=== PATIENT | male | born 1945 | race Asian ===

== ENCOUNTER 2018-03-31 10:03 | Observation (INO) | payer BC ==
[2018-03-31 11:20] LABS: ADD MAN DIFF? NO
[2018-03-31 11:27] LABS: WHITE BLOOD COUNT 6.7 10^3/ul (4.8-10.8)
[2018-03-31 11:27] LABS: BASOPHILS % 0.6 % (0.0-2.0); EOSINOPHILS # 0.2 10^3/ul (0.0-0.5); EOSINOPHILS % 3.5 % (0.0-7.0); HEMATOCRIT 44.1 % (42.0-52.0); HEMOGLOBIN 15.1 g/dl (14.0-18.0); LYMPHOCYTES % 29.4 % (15.0-51.0); MEAN CORPUSCULAR HEMOGLOBIN 31.7 pg (29.0-33.0); MEAN CORPUSCULAR HGB CONC 34.2 g/dl (32.0-37.0); MEAN CORPUSCULAR VOLUME 92.6 fl (82.0-101.0); MONOCYTE # 0.5 10^3/ul (0.3-0.9); MONOCYTES % 6.8 % (0.0-11.0); NEUTROPHILS % 59.4 % (39.0-77.0); PLATELET COUNT 199 10^3/UL (140-415); RED BLOOD COUNT 4.76 10^6/ul (4.70-6.10); RED CELL DISTRIBUTION WIDTH 13.1 % (11.5-14.5)
[2018-03-31 11:48] LABS: INR 1.01; PROTIME 13.4 Sec (11.9-14.9)
[2018-03-31 11:59] LABS: ANION GAP 14 (8-16); CARBON DIOXIDE 28 mmol/L (21-31); CHLORIDE 105 mmol/L (97-110); GLUCOSE 101 mg/dl (70-220)
[2018-03-31 12:00] LABS: BLOOD UREA NITROGEN 16 mg/dl (7-20); CALCIUM 9.1 mg/dl (8.4-10.2); CREATININE 0.92 mg/dl (0.61-1.24); POTASSIUM 3.6 mmol/L (3.5-5.1); SODIUM 143 mmol/L (135-144)
[2018-03-31] MEDS ORDERED: FENTAnyl 50 MCG/ML VIAL (12:02)
[2018-03-31] MEDS ORDERED: MIDAZOLAM 1 MG/ML 2 ML INJ (12:02)
[2018-03-31] MEDS ORDERED: IODIXANOL LOCM 100 ML BTL ×2 (12:02→12:52)
[2018-03-31] MEDS ORDERED: NITROGLYCERIN (IC) 100 MCG/ML INJ (12:02)
[2018-03-31] MEDS ORDERED: HEPARIN 1000 UNITS/ML 10 ML INJ (12:02)
[2018-03-31] MEDS ORDERED: VERAPAMIL 5 MG INJ (12:02)
[2018-03-31] MEDS ORDERED: LIDOCAINE 1% (MDV) 10 ML INJ (12:03)
[2018-03-31] MEDS ORDERED: IOHEXOL 350MG/ML 50 ML BTL (12:52)
[2018-03-31] MEDS ORDERED: CLOPIDOGREL 300 MG TAB (12:54)
[2018-03-31] MEDS ORDERED: ASPIRIN 325 MG TAB (12:54)
[2018-03-31] MEDS ORDERED: ACETAMINOPHEN 325 MG TAB PO (14:00)
[2018-03-31] MEDS ORDERED: ONDANSETRON 4 MG INJ IV (14:00)
[2018-03-31] MEDS ORDERED: AL HYDROX/MG HYDROX/SIMETH 30 ML CUP PO (14:00)
[2018-03-31] MEDS: SOD CHLORIDE 0.9% 1,000 ML IV (14:50)
[2018-03-31 15:28] LABS: ADD MAN DIFF? NO
[2018-03-31 15:30] LABS: WHITE BLOOD COUNT 6.6 10^3/ul (4.8-10.8)
[2018-03-31 15:30] LABS: BASOPHIL # 0.1 10^3/ul (0.0-0.1); BASOPHILS % 0.8 % (0.0-2.0); EOSINOPHILS # 0.3 10^3/ul (0.0-0.5); EOSINOPHILS % 4.2 % (0.0-7.0); HEMATOCRIT 44.5 % (42.0-52.0); LYMPHOCYTES % 29.6 % (15.0-51.0); MEAN CORPUSCULAR HEMOGLOBIN 31.7 pg (29.0-33.0); MEAN CORPUSCULAR HGB CONC 33.7 g/dl (32.0-37.0); MEAN CORPUSCULAR VOLUME 94.1 fl (82.0-101.0); MEAN PLATELET VOLUME 10.1 fl (7.4-10.4); MONOCYTE # 0.4 10^3/ul (0.3-0.9); MONOCYTES % 5.9 % (0.0-11.0); NEUTROPHIL # 3.9 10^3/ul (1.6-7.5); NEUTROPHILS % 59.2 % (39.0-77.0); PLATELET COUNT 189 10^3/UL (140-415); RED BLOOD COUNT 4.73 10^6/ul (4.70-6.10); RED CELL DISTRIBUTION WIDTH 13.1 % (11.5-14.5)
[2018-03-31] MEDS: ATORVASTATIN 40 MG TAB PO (20:41)
[2018-04-01 05:52] LABS: ADD MAN DIFF? NO
[2018-04-01 05:59] LABS: BASOPHILS % 0.5 % (0.0-2.0); EOSINOPHILS # 0.2 10^3/ul (0.0-0.5); EOSINOPHILS % 2.6 % (0.0-7.0); HEMATOCRIT 42.3 % (42.0-52.0); HEMOGLOBIN 14.8 g/dl (14.0-18.0); LYMPHOCYTES # 1.5 10^3/ul (0.8-2.9); LYMPHOCYTES % 19.1 % (15.0-51.0); MEAN CORPUSCULAR HEMOGLOBIN 32.2 pg (29.0-33.0); MONOCYTE # 0.5 10^3/ul (0.3-0.9); MONOCYTES % 6.5 % (0.0-11.0); NEUTROPHIL # 5.7 10^3/ul (1.6-7.5); NEUTROPHILS % 70.9 % (39.0-77.0); PLATELET COUNT 169 10^3/UL (140-415)
[2018-04-01 06:20] LABS: ANION GAP 14 (8-16); BLOOD UREA NITROGEN 15 mg/dl (7-20); CALCIUM 8.7 mg/dl (8.4-10.2); CARBON DIOXIDE 27 mmol/L (21-31); CHLORIDE 105 mmol/L (97-110); CREATININE 0.82 mg/dl (0.61-1.24); GLUCOSE 109 mg/dl (70-220); POTASSIUM 3.7 mmol/L (3.5-5.1); SODIUM 142 mmol/L (135-144)
[2018-04-01] MEDS: CLOPIDOGREL 75 MG TAB PO (09:10)
[2018-04-01] MEDS: ASPIRIN (EC) 81 MG TAB PO (09:10)
== END 2018-04-01 11:08 | disposition home or self-care (01) ==
LOC: CCL 10:03 → SDS 10:03 → CCL 13:38 → REC 14:00 → ICU 16:54
DX: I25.110 Atherosclerotic heart disease of native coronary artery with unstable angina pectoris (principal); I10 Essential (primary) hypertension; I71.2 Thoracic aortic aneurysm, without rupture
CPT/HCPCS: 71045; 80048; 85025; 85610; 85730; 87081; 93005; 93454; 99217

== ENCOUNTER 2018-04-09 17:44 | Emergency (ER) | payer BC ==
[2018-04-09] MEDS: predniSONE 20 MG TAB PO (18:40)
[2018-04-09] MEDS: hydrOXYzine HCL 10 MG TAB PO (18:48)
[2018-04-09] MEDS: TICAGRELOR 90 MG TABLET PO (20:18)
== END 2018-04-09 20:24 | disposition home or self-care (01) ==
LOC: E/R 17:44
DX: R22.0 Localized swelling, mass and lump, head (principal); L53.9 Erythematous condition, unspecified; I10 Essential (primary) hypertension; Z79.82 Long term (current) use of aspirin; Z79.01 Long term (current) use of anticoagulants
CPT/HCPCS: 99284

== ENCOUNTER 2018-04-10 08:04 | Emergency (ER) | payer BC | END 2018-04-10 09:20 | disposition home or self-care (01) | LOC: E/R 08:04 | DX: R06.02 Shortness of breath (principal); I10 Essential (primary) hypertension; I25.10 Atherosclerotic heart disease of native coronary artery without angina pectoris; Z88.8 Allergy status to other drugs, medicaments and biological substances; Z02.89 Encounter for other administrative examinations; Z79.82 Long term (current) use of aspirin; Z98.61 Coronary angioplasty status | CPT/HCPCS: 99282 ==